=== PATIENT | male | born 2000 | race Two or more races ===

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

== ENCOUNTER 2018-03-11 01:47 | Emergency (ER) | payer BC ==
[~2018-03-11] VITALS: Ht 177.8 cm; Wt 68.0 kg
--- NOTE | 2018-03-11 03:55 | NUR ---
Dr. Beth at bedside for MSE.
[2018-03-11] MEDS ORDERED: CLINDAMYCIN HCL 300 MG CAPSULE ONE (04:14)
[2018-03-11] MEDS ORDERED: predniSONE 50 MG TABLET PO ONE (04:15)
[2018-03-11] MEDS ORDERED: CLINDAMYCIN HCL 150 MG CAPSULE PO ONE (04:15)
[2018-03-11] MEDS ORDERED: predniSONE 50 MG TABLET ONE (04:15)
--- NOTE | 2018-03-11 04:15 | NUR ---
Patient discharged to home in stable conditon. Written and verbal after care instructions given. Patient verbalizes understanding of instructions. Patient ambulated out of ER with steady gait, no acute signs of distress, VSS, all belongings taken.
[2018-03-11 04:23] VITALS: BP 122/70
== END 2018-03-11 04:15 | disposition home or self-care (01) ==
LOC: ER 01:48
DX: J03.90 Acute tonsillitis, unspecified (principal); J45.909 Unspecified asthma, uncomplicated; R13.10 Dysphagia, unspecified
CPT/HCPCS: A4663; J7512